=== PATIENT | male | born 1995 | race African-American/Black ===

== ENCOUNTER 2020-07-03 21:28 | Emergency (ER) | payer OTHER, SELFPAY ==
[2020-07-03 21:25] VITALS: BP 128/67; PULSE 88; RESP 16; TEMP 36.6; O2SAT 100; BMI 18.6
[2020-07-03 21:35] VITALS: BP 128/69; PULSE 96; O2SAT 98
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
[2020-07-03 21:45] VITALS: BP 102/61; PULSE 117; O2SAT 97
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
[2020-07-03 21:50] VITALS: BP 122/78; PULSE 86; O2SAT 98
--- NOTE | 2020-07-03 21:50 | PC.NURSE ---
Patient gone to radiology at this time
[2020-07-03 21:54] LABS: Microscopic, Urine URINE MICROSCOPIC (MICROSCOPIC)
[2020-07-03 21:56] LABS: Appearance,Urine CLEAR (Clear); Basophils % 0.5 % (0.1-2.0); Bilirubin,Urine Negative (Negative); Blood, Urine Negative (Negative); Color,Urine YELLOW (Yellow); Eosinophils # 0.6 K/mm3 (0.0-0.4); Glucose,Urine (UA) Negative (Negative); Hematocrit 42.6 % (42.0-52.0); Hemoglobin 13.8 g/dL (14.1-18.0); Ketones,Urine Negative (Negative); Leukocyte Esterase,Urine Negative (Negative); Lymphocytes # 2.7 K/mm3 (0.7-4.5); Mean Corpuscular HGB Conc 32.5 g/dL (31.8-35.4); Mean Corpuscular Volume 86.3 fl (80-94); Mean Platelet Volume 8.6 fl (7.4-10.4); Monocytes # 0.3 K/mm3 (0.1-1.0); Monocytes % 4.4 % (1.7-9.3); Neutrophils # 3.6 K/mm3 (1.8-7.8); Nitrate,Urine Negative (Negative); Platelet Count 177 K/mm3 (142-424); Protein,Urine Negative (Negative); Red Blood Count 4.93 M/mm3 (4.60-6.20); Red Cell Distribution Width 12.2 % (11.5-17.5); Specific Gravity, Urine 1.025 (1.005-1.030); White Blood Count 7.2 K/mm3 (4.8-10.8)
[2020-07-03 21:58] LABS: Chloride 101 mmol/L (98-107); Potassium 3.7 mmoL/L (3.5-5.1); Sodium 139 mmol/L (136-145)
[2020-07-03 22:01] LABS: Anion Gap 14.7 mEq/L (5-15); Blood Urea Nitrogen 20 mg/dl (9-20); Calcium 9.5 mg/dl (8.4-10.2); Carbon Dioxide 27 mmol/L (22.0-30.0); Creatinine Clearance Estimated 105 mL/min (50-200); Estimated Glomerular Filt Rate 103 ml/min (>60); GFR (African American) 124 ML/MIN (>60); Glucose 137 mg/dl (74-100)
[2020-07-03 22:08] LABS: Barbiturates Screen,Urine Negative ng/ml (<200); Benzodiazepines Screen,Urine Negative ng/ml (<200)
[2020-07-03 22:09] LABS: Amphetamine/Metha Screen,Urine Negative ng/ml (<1000)
[2020-07-03 22:10] LABS: Cannabinoid Screen,Urine Positive ng/ml (<50); Cocaine Screen,Urine Negative ng/ml (<300)
[2020-07-03 22:11] LABS: Methadone Screen,Urine Negative ng/ml (<300); Opiate Screen,Urine Negative ng/ml (<300)
[2020-07-03 22:12] LABS: Bacteria,Urine Trace /lpf; Phencyclidine Screen,Urine Negative ng/ml (<25)
--- NOTE | 2020-07-03 22:14 | PC.NURSE ---
pt back from radiology
--- NOTE | 2020-07-03 23:08 | PC.NURSE ---
pt is back from XR
[2020-07-03 23:10] VITALS: BP 108/71; PULSE 61; RESP 18; O2SAT 100
[2020-07-03 23:25] VITALS: BP 128/69; PULSE 79; RESP 16; TEMP 37.1
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
[2020-07-04 10:37] LABS: POC Glucose,Bedside 147 (70-110)
== END 2020-07-03 23:44 | disposition home or self-care (01) ==
PROVIDERS: Emergency Provider Emergency Medicine
DX: S16.1XXA Strain of muscle, fascia and tendon at neck level, initial encounter (principal); V89.2XXA Person injured in unspecified motor-vehicle accident, traffic, initial encounter; Y92.488 Other paved roadways as the place of occurrence of the external cause; F12.10 Cannabis abuse, uncomplicated; F17.290 Nicotine dependence, other tobacco product, uncomplicated
CPT/HCPCS: 70450; 71046; 72125; 72170; 80048; 80305; 81001; 82962; 85025; 99284

== ENCOUNTER 2022-03-05 12:07 | Emergency (ER) | payer MEDICAID, SELFPAY ==
[2022-03-05] VITALS (10 sets, daily range): BP systolic 104–134; BP diastolic 62–93; PULSE 44–78; RESP 16–17; TEMP 36.6–36.8; O2SAT 94–100; BMI 19.2
--- NOTE | 2022-03-05 12:17 | PC.NURSE ---
pt ambulatory to restroom to provide UA without complications and then ambulatory to ED room 9. SHABBIR English at
[2022-03-05 12:28] LABS: Microscopic, Urine URINE MICROSCOPIC (MICROSCOPIC)
[2022-03-05 12:30] LABS: Appearance,Urine CLEAR (Clear); Blood, Urine Negative (Negative); Color,Urine YELLOW (Yellow); Glucose,Urine (UA) Negative (Negative); Ketones,Urine TRACE (Negative); Leukocyte Esterase,Urine Negative (Negative); Nitrate,Urine Negative (Negative); PH,Urine 6.5 (5.0-8.5); Protein,Urine Negative (Negative)
[2022-03-05 12:40] LABS: Bilirubin,Urine 1+ (Negative)
--- NOTE | 2022-03-05 12:44 | HMH.EDGENADL ---
ED Disposition Clinical Impression: Colitis Disposition: Home, Self-Care Condition on Discharge: Good Instructions: DI for Acute Abdominal Pain Additional Instructions: Cipro and ibuprofen as prescribed. Follow-up with primary care provider if not improved in 4 to 5 days. Additional instructions for ABDOMINAL PAIN: See your physician as soon as possible for further evaluation. Return immediately if worsening abdominal pain, vomiting, shortness of breath, fever, vomiting of blood, bloody diarrhea, or abdominal distention. You are being provided with a list of physicians available for follow-up of your condition. Please call a physician on this list to arrange a follow-up appointment as soon as possible. Prescriptions: Ibuprofen [Ibuprofen 600mg Tab] 600 mg PO Q6HP PRN #20 tab PRN Reason: Moderate Pain Transmission Status: [facility] Ciprofloxacin HCl [Cipro 500mg Tab] 500 mg PO BID #14 tab Transmission Status: [facility] Referrals: Provider,Referral, [Primary Care Provider] - - Critical Care Critical Care Time: No Attestation: On 03/05/22, the high probability of a clinically significant, sudden or life threatening deterioration of the following system(s) required my full and direct attention, intervention and personal management. The time I documented below is in addition to time spent performing reported procedures but includes the following listed in this critical care notation. Medical Decision Making - Lefty Inquiry Pt receiving controlled substance: Yes Lefty was queried for this patient: Yes Risks and benefits of using a controlled substance: were not discussed with pt by me Vital Signs: 03/05/22 12:23 03/05/22 12:30 03/05/22 13:00 Temperature 98.2 F Temperature Source Oral Pulse Rate 56 L 65 Pulse Rate [Right] 54 L Respiratory Rate 17 Blood Pressure 134/93 H 116/80 Blood Pressure [Right Arm] 122/62 Blood Pressure Mean 104 97 Blood Pressure Mean [Right Arm] 82 02 Sat by Pulse Oximetry 100 100 100 03/05/22 13:30 03/05/22 14:00 03/05/22 14:30 Temperature Temperature Source Pulse Rate 44 L 47 L 53 L Pulse Rate [Right] Respiratory Rate Blood Pressure 126/81 110/63 119/84 Blood Pressure [Right Arm] Blood Pressure Mean 97 78 94 Blood Pressure Mean [Right Arm] 02 Sat by Pulse Oximetry 100 100 100 03/05/22 15:00 03/05/22 15:30 03/05/22 16:01 Temperature Temperature Source Pulse Rate 49 L 55 L 51 L Pulse Rate [Right] Respiratory Rate Blood Pressure 114/77 104/67 L 104/64 L Blood Pressure [Right Arm] Blood Pressure Mean 89 79 78 Blood Pressure Mean [Right Arm] 02 Sat by Pulse Oximetry 100 100 100 - Lab Data Lab Results 03/05/22 10:20: Urine Color Yellow, Urine Appearance Clear, Urine pH 6.5, Ur Specific [place] 1.020, Urine Protein Negative, Urine Glucose (UA) Negative, Urine Ketones Trace, Urine Blood Negative, Urine Nitrate Negative, Urine Bilirubin 1+ A, Urine Urobilinogen 4.0, Ur Leukocyte Esterase Negative, Urine RBC None, Urine WBC None, Ur Squamous Epith Cells 3-5, Urine Bacteria Trace 03/05/22 12:30: WBC 3.8 L, RBC 5.01, Hgb 14.2, Hct 42.6, MCV 84.9, MCH 28.4, MCHC 33.4, RDW 12.9, Plt Count 191, MPV 9.0, Neut % (Auto) 36.8 L, Lymph % (Auto) 48.4, [place] % (Auto) 5.8, Eos % (Auto) 5.7, Baso % (Auto) 3.2 H, Neut # (Auto) 1.4 L, Lymph # (Auto) 1.9, [place] # (Auto) 0.2, Eos # (Auto) 0.2, Baso # (Auto) 0.1 03/05/22 12:30: Sodium 140, Potassium 3.8, Chloride 104, Carbon Dioxide 30, Anion Gap 9.8, BUN 17, Creatinine 1.00, Estimated Creat Clear 93, Estimated GFR 90, Est GFR ( Amer) 108, Glucose 111 H, Calcium 9.4, Total Bilirubin 0.9, AST 31, ALT 16, Alkaline Phosphatase 48, Total Protein 7.6, Albumin 4.8, Globulin 2.8, Albumin/Globulin Ratio 1.7, Amylase 74, Lipase 78 03/05/22 12:52: SARS-CoV-2 (PCR) Not detected, Influenza A Untype (PCR) Not detected, Influenza Type B (PCR
[2022-03-05 12:48] LABS: Basophils # 0.1 K/mm3 (0-0.2); Basophils % 3.2 % (0.1-2.0); Eosinophils # 0.2 K/mm3 (0.0-0.4); Eosinophils % 5.7 % (0.1-12.0); Hematocrit 42.6 % (42.0-52.0); Hemoglobin 14.2 g/dL (14.1-18.0); Lymphocytes # 1.9 K/mm3 (0.7-4.5); Lymphocytes % 48.4 % (10-50); Mean Corpuscular HGB Conc 33.4 g/dL (31.8-35.4); Mean Corpuscular Hemoglobin 28.4 pg (27.0-31.2); Mean Corpuscular Volume 84.9 fl (80-94); Monocytes # 0.2 K/mm3 (0.1-1.0); Monocytes % 5.8 % (1.7-9.3); Neutrophils # 1.4 K/mm3 (1.8-7.8); Neutrophils % 36.8 % (37.0-80.0); Platelet Count 191 K/mm3 (142-424); Red Blood Count 5.01 M/mm3 (4.60-6.20); Red Cell Distribution Width 12.9 % (11.5-17.5); White Blood Count 3.8 K/mm3 (4.8-10.8)
--- NOTE | 2022-03-05 12:50 | CT_ITS ---
FINAL REPORT CLINICAL HISTORY: abdo pain, r/o appendicitis FINDINGS: Axial CT images of the abdomen and pelvis were obtained without intravenous contrast. Oral contrast was administered. Coronal reformatted images were also obtained.This study was performed with techniques to keep radiation doses as low as reasonably achievable (ALARA). Individualized dose reduction techniques using automated exposure control or adjustment of mA and/or kV according to the patient's size were employed. Abdomen: The lung bases are clear. There are early calcifications in the renal pyramids without well-defined renal stones. The gallbladder is present. The liver, spleen and pancreas have an unremarkable, unenhanced appearance. There is wall thickening of the ascending colon with some adjacent fat straight a consistent with colitis. There is a paucity of intra-abdominal and intrapelvic fat which makes evaluation more difficult. Pelvis: A portion of the appendix is visualized and appears normal where seen. Images of the pelvis reveal no evidence of ureteral dilation or ureteral stone. There is a small amount of pelvic free fluid which is likely reactive. There is a cystic mass in the mid pelvis measuring 31 mm which may represent mesenteric or omental cyst versus other cystic mass. IMPRESSION: Findings consistent with ascending colitis. Appendix partially visualized but normal where seen. Pelvic cystic mass of uncertain etiology. Could be further evaluated with follow-up CT. Small amount of pelvic free fluid, likely reactive. Reviewed, Interpreted and Dictated by Orion Nuñez III, MD Transcribed by Barb Wong Authenticated by Orion Nuñez III, MD on 03/05/2022 03:48:36 PM [facility]
[2022-03-05 12:54] LABS: Chloride 104 mmol/L (98-107); Potassium 3.8 mmoL/L (3.5-5.1); Sodium 140 mmol/L (136-145)
[2022-03-05 12:54] LABS: Bacteria,Urine Trace /lpf
[2022-03-05 12:56] LABS: Alanine Aminotransferase 16 U/L (12-78); Amylase 74 U/L (30-110); Aspartate Amino Transferase 31 U/L (17-59); Blood Urea Nitrogen 17 mg/dl (9-20); Creatinine Clearance Estimated 93 mL/min (50-200); Estimated Glomerular Filt Rate 90 ml/min (>60); GFR (African American) 108 ML/MIN (>60)
[2022-03-05 12:57] LABS: Albumin Level 4.8 g/dl (3.5-5.0); Albumin/Globulin Ratio 1.7 (1.1-1.8); Alkaline Phosphatase 48 U/L (38-126); Anion Gap 9.8 mEq/L (5-15); Bilirubin,Total 0.9 mg/dl (0.2-1.3); Calcium 9.4 mg/dl (8.4-10.2); Carbon Dioxide 30 mmol/L (22.0-30.0); Globulin 2.8 g/dL (1.3-3.2); Glucose 111 mg/dl (74-100); Lipase 78 U/L (23-300); Total Protein,Serum 7.6 g/dl (6.3-8.2)
--- NOTE | 2022-03-05 13:04 | PC.NURSE ---
Pt finished or contrast notified rad
--- NOTE | 2022-03-05 14:29 | PC.NURSE ---
Family at BS
[2022-03-05 15:07] LABS: Coronavirus 19, PCR Not Detected (NotDetected); Influenza A, PCR Not Detected (NotDetected); Influenza B, PCR Not Detected (NotDetected)
--- NOTE | 2022-03-05 16:23 | PC.NURSE ---
ED MD at speaking with patient
== END 2022-03-05 16:59 | disposition home or self-care (01) ==
PROVIDERS: Emergency Provider Emergency Medicine
DX: K52.9 Noninfective gastroenteritis and colitis, unspecified; Z72.0 Tobacco use
CPT/HCPCS: 74176; 80053; 81001; 82150; 83690; 85025; 96372; 96374; 96375; 99284; C9803; J2405; U0003; U0005

== ENCOUNTER 2022-08-22 11:48 | Emergency (ER) | payer OTHER, SELFPAY ==
[2022-08-22 12:20] VITALS: BP 116/67; PULSE 64; RESP 18; TEMP 36.8; O2SAT 99; BMI 20.3
[2022-08-22 12:43] LABS: UTC Influenza A Antigen Negative (Negative); UTC Influenza B Antigen Negative (Negative)
--- NOTE | 2022-08-22 12:46 | EXP.UTC ---
Discharge Plan Disposition Patient Disposition: Home, Self-Care Condition: Good Prescriptions Prescriptions: New ondansetron 4 mg tablet,disintegrating 4 mg PO Q8H PRN (Reason: nausea and vomiting) Qty: 10 0RF Referrals Follow up/Referrals: Provider,Referral, MD [Primary Care Provider] - See instructions Activity Restrictions/Add. Instructions Additional Instructions/Restrictions: *Monitor Temp, Over the counter Motrin or Tylenol as directed/as needed Tylenol every 4 hours and Motrin every 6 hours (as long as your family doctor has told you that you can take it) for fever or pain. and straight to ER if unable to lower temp less than 101.0 after medication given *Warm salt water gargles may help to soothe the throat *Throat Lozenges? *Warm fluids like tea with honey may help to soothe the throat? *Sleep elevated *Humidifier/Vaporizer Over the counter cold and cough medication Follow up IMMEDIATELY for new or worsening symptoms or no Noticeable improvement over the next 48-72 hours. 911 for difficulty breathing or swallowing You were tested for today for COVID19 your test result should be back in the next 24-48 hours, you may check your results on the [facility] linkedü Health portal Clinical Impressions Clinical Impression: Viral syndrome Stand Alone Forms Stand Alone Forms: Work/School Release Instructions Patient Instructions: DI for Viral Upper Respiratory Infection -- Adult Discharge ED Provider: Brandie Pham [facility] [place] General Stated complaint: JEAN, Lightheaded, nausea, chills Mode of Arrival: Ambulatory Source of Information: Patient Limitations: No Limitations Time Seen by Provider: 08/22/22 12:47 Description of Symptoms (Recalled from Triage Doc. by RN): PATIENT C/O HEADACHE, NAUSEA, AND BODY ACHES SINCE YESTERDAY HEENT Symptoms (Recalled from RN notes): Yes Resp Symptoms (Recalled from RN notes): No Skin Symptoms (Recalled from RN notes): No MS Symptoms (Recalled from RN notes): No Functional Status (Recalled from RN notes): WNL History of Present Illness Provider Complaint: Patient states that he started feeling bad yesterday with fever, chills, body aches and nausea states that symptoms started last night and today he was still feeling bad so he came in to get checked out Related Data Previous Rx's Medication Instructions Recorded ondansetron 4 mg disintegrating 4 mg PO Q8H PRN nausea and 08/22/22 tablet vomiting #10 tabs Allergies Allergy/AdvReac Type Severity Reaction Status Date / Time No Known Allergies Allergy Verified 07/03/20 21:41 Worker's Comp Is this a Worker's Comp case?: No PFSH PFSH Medical History (Updated 08/22/22 @ 13:01 by Brandie Pham APRN) Asthma Social History (Updated 08/22/22 @ 12:29 by Joanne Salazar RN) Smoking Status: Current every day smoker tobacco type: e-cigarettes alcohol intake: never current occupational status: employed Travel in the last 8 weeks: None ROS Obtained: Yes All systems reviewed & no additional complaints except as documented and Yes Systems reviewed as appropriate & no additional complaints except as documented Constitutional Constitutional: Reports system reviewed and no additional complaints, except as documented and Reports as per HPI ENT Ears, Nose, Mouth, and Throat: Reports system reviewed and no additional complaints, except as documented, Reports as per HPI, Reports nasal congestion and Reports nasal discharge Cardiovascular Cardiovascular: Reports system reviewed and no additional complaints, except as documented and Reports as per HPI Respiratory Respiratory: Reports system reviewed and no additional complaints, except as documented, Reports as per HPI and Reports cough Gastrointestinal Gastrointestingal: Reports system reviewed and no additional complaints, except as documented and as per HPI Physical Exam General General appearance: alert and in no apparent distress Expanded ENT
[2022-08-22 13:15] VITALS: BP 116/67; PULSE 64; RESP 18; TEMP 36.8; O2SAT 99
== END 2022-08-22 13:17 | disposition home or self-care (01) ==
PROVIDERS: Emergency Provider Nurse Practitioner
DX: R51.9 Headache, unspecified (principal); R42 Dizziness and giddiness; R11.0 Nausea; B34.9 Viral infection, unspecified
CPT/HCPCS: 87804; 99212; G0463

== ENCOUNTER 2023-10-14 15:33 | Emergency (ER) | payer OTHER, MEDICAID, SELFPAY ==
[2023-10-14 16:00] VITALS: BP 121/57; PULSE 83; RESP 18; TEMP 37.1; O2SAT 100; BMI 19.2
--- NOTE | 2023-10-14 16:11 | EXP.UTC ---
Discharge Plan Disposition Patient Disposition: Home, Self-Care Condition: Good Prescriptions Prescriptions: New amoxicillin [amoxicillin] 875 mg tablet 875 mg PO Q12H Qty: 20 0RF [id number] [Bromfed DM] 2-30-10 mg/5 mL Syrup 5 ml PO Q6H PRN (Reason: Cough) Qty: 240 0RF prednisone 10 mg tablet 10 mg PO BID 3 Days Qty: 6 0RF Referrals Follow up/Referrals: Provider,Referral, MD [Primary Care Provider] - See instructions Activity Restrictions/Add. Instructions Additional Instructions/Restrictions: Drink plenty of fluids. Take tylenol or ibuprofen for pain or fever. Take the medications as directed. Follow up with your regular doctor. GO TO THE ER FOR ANY WORSENING SYMPTOMS Throw your tooth brush away and get a new one. Clinical Impressions Clinical Impression: Strep throat Stand Alone Forms Stand Alone Forms: Work/School Release Instructions Patient Instructions: Strep Throat, DI for Strep Throat Discharge ED Provider: Chai Rojas [facility] General Stated complaint: sore throat, nausea, fever Time Seen by Provider: 10/14/23 16:05 History of Present Illness Provider Complaint: He states that for the past 2 days he has had sore throat, chills, and fever. Related Data Previous Rx's Medication Instructions Recorded amoxicillin 875 mg tablet 875 mg PO Q12H #20 tabs 10/14/23 [id number]-nzzzhetnmmkewpl-[id number] 5 ml PO Q6H PRN Cough #240 mL 10/14/23 2 mg-30 mg-10 mg/5 mL oral syrup (Bromfed DM) prednisone 10 mg tablet 10 mg PO BID 3 days #6 tabs 10/14/23 Allergies Allergy/AdvReac Type Severity Reaction Status Date / Time No Known Allergies Allergy Verified 10/14/23 16:23 [facility] Disclaimer: The information contained in this section may have been updated after the patient was seen, as this information can be updated by other users. Medical History (Updated 10/14/23 @ 16:33 by Chai Rojas APRN) Asthma Social History Smoking Status: Current every day smoker tobacco type: e-cigarettes alcohol intake: never current occupational status: employed Travel in the last 8 weeks: None ROS Obtained: Yes All systems reviewed & no additional complaints except as documented Constitutional Constitutional: Reports chills and Reports fever(s) Eyes Eyes: Denies eye discharge ENT Ears, Nose, Mouth, and Throat: Reports as per HPI Cardiovascular Cardiovascular: Denies chest pain Respiratory Respiratory: Denies chest congestion and Reports cough Gastrointestinal Gastrointestingal: Reports nausea; Denies abdominal pain, constipation, cramping, diarrhea or vomiting Musculoskeletal Musculoskeletal: Denies arthralgias Integumentary/Breasts Skin/Breast: Denies rash Neurologic Neurologic: Denies paresthesias Physical Exam General General appearance: alert and in no apparent distress Head Head exam: atraumatic, normocephalic and normal inspection Eye Eye exam: Present normal appearance, PERRL and EOMI ENT ENT exam: Present mucous membranes moist and normal external ear exam Expanded ENT Exam TM/Canal exam: Bilateral TM: erythema and bulging Nose exam: Absent sinus tenderness Mouth exam: Present normal external inspection; Absent drooling Teeth exam: Present normal inspection Throat exam: Present tonsillar erythema, tonsillomegaly and tonsillar exudate Neck Neck exam: Present normal inspection, full ROM and trachea midline; Absent tenderness, meningismus or lymphadenopathy Chest Chest inspection: Present normal inspection and symmetric chest wall rise; Absent tenderness Respiratory Respiratory exam: Present normal lung sounds bilaterally; Absent respiratory distress, wheezes or stridor Cardiovascular Cardiovascular exam: Present regular rate and normal rhythm; Absent systolic murmur or diastolic murmur Abdominal Exam Abdominal exam: Present soft and normal bowel sounds; Absent distention, tenderness, guarding, rebound or rigidity Extremities Exam Extremities exam: Present normal inspection and normal capillary refill; Absent calf tenderness Back Exam Back exam: Present normal inspection and full ROM; Absent tenderness, CVA tenderness (R) or CVA tenderness (L) Neurological Exam Neurological exam: Present alert, oriented X3 and CN II-XII intact Psychiatric Psychiatric exam: Present normal affect and normal mood Skin Skin exam: Present warm, dry, intact and normal color Medical Decision Making Medical Records Medical records reviewed: No I reviewed the patient's medical records. Lefty Inquiry Pt receiving controlled substance: No Lab Data Lab results reviewed: Yes I reviewed the patient's lab results.
[2023-10-14 16:24] LABS: UTC Influenza A Antigen Negative (Negative); UTC Influenza B Antigen Negative (Negative)
[2023-10-14 16:25] LABS: UTC Strep Screen (Rapid) Positive (Negative)
[2023-10-14 16:48] VITALS: BP 121/57; PULSE 83; RESP 18; TEMP 37.1; O2SAT 100
== END 2023-10-14 16:48 | disposition home or self-care (01) ==
PROVIDERS: Emergency Provider Nurse Practitioner Family
DX: J02.0 Streptococcal pharyngitis (principal); R07.0 Pain in throat; R50.9 Fever, unspecified; R11.0 Nausea; F17.290 Nicotine dependence, other tobacco product, uncomplicated; J45.909 Unspecified asthma, uncomplicated
CPT/HCPCS: 87804; 87880; 99212; 99214; G0463

== ENCOUNTER 2024-03-28 11:10 | Emergency (ER) | payer BC, SELFPAY ==
[2024-03-28 11:17] VITALS: BP 122/70; PULSE 54; O2SAT 100
[2024-03-28 11:20] VITALS: BP 122/70; PULSE 60; RESP 20; TEMP 36.6; O2SAT 100; BMI 18.6
[2024-03-28 11:24] LABS: Microscopic, Urine URINE MICROSCOPIC (MICROSCOPIC)
[2024-03-28 11:27] LABS: Appearance,Urine CLEAR (Clear); Blood, Urine Negative (Negative); Glucose,Urine (UA) Negative (Negative); Ketones,Urine TRACE (Negative); Leukocyte Esterase,Urine Negative (Negative); Nitrate,Urine Negative (Negative); Protein,Urine TRACE (Negative); Specific Gravity, Urine 1.025 (1.005-1.030)
--- NOTE | 2024-03-28 11:30 | ED_ITS ---
Discharge Plan Disposition Patient Disposition: Home, Self-Care Chief Complaint: Nausea/Vomiting/Diarrhea Prescriptions Prescriptions: No Action amoxicillin [amoxicillin] 875 mg tablet 875 mg PO Q12H Qty: 20 0RF [id number]-[id number] [Bromfed DM] 2-30-10 mg/5 mL Syrup 5 ml PO Q6H PRN (Reason: Cough) Qty: 240 0RF prednisone 10 mg tablet 10 mg PO BID 3 Days Qty: 6 0RF Referrals Follow up/Referrals: Provider,Referral, MD [Primary Care Provider] - See instructions Activity Restrictions/Add. Instructions Additional Instructions/Restrictions: At this time it was felt you are safe to be discharged home. If new or worsening symptoms please do not hesitate to return the emergency department. Clinical Impressions Clinical Impression: Acute viral syndrome, Impacted cerumen, left ear Instructions Patient Instructions: DI for Nausea -- Adult Discharge ED Provider: César Matamoros General Adult HPI General Chief complaint: Nausea/Vomiting/Diarrhea Stated complaint: headache,chills.abd pain Time Seen by Provider: 03/28/24 11:20 History of Present Illness HPI narrative: Patient is a 29-year-old male with no chronic comorbidities who presents emergency department for evaluation of multiple symptoms. Patient has had nausea over the last week, intermittent bitemporal headache. He has had abdominal discomfort in his left upper quadrant. There is associated global chills. He is concerned about possible left-sided ear infection. No dysuria, no chest pain, no other acute complaints at this time. No definitive sick contacts currently however multiple family members had virus prior. Related Data Previous Rx's Medication Instructions Recorded amoxicillin 875 mg tablet 875 mg PO Q12H #20 tabs 10/14/23 shtllgdxvpmpqts-cggqxlvuzwiffgi-IS 5 ml PO Q6H PRN Cough #240 mL 10/14/23 2 mg-30 mg-10 mg/5 mL oral syrup (Bromfed DM) prednisone 10 mg tablet 10 mg PO BID 3 days #6 tabs 10/14/23 Allergies Allergy/AdvReac Type Severity Reaction Status Date / Time No Known Allergies Allergy Verified 10/14/23 16:23 [facility] Disclaimer: The information contained in this section may have been updated after the patient was seen, as this information can be updated by other users. Medical History (Updated 03/28/24 @ 12:20 by César Matamoros MD) Asthma Social History Smoking Status: Current every day smoker tobacco type: e-cigarettes alcohol intake: never current occupational status: employed Travel in the last 8 weeks: None ROS Obtained: Yes Systems reviewed as appropriate & no additional complaints except as documented Physical Exam General General appearance: alert and in no apparent distress Head Head exam: atraumatic and normocephalic Eye Eye exam: Present PERRL and EOMI ENT ENT exam: Present mucous membranes moist; Absent TM's normal bilaterally (Right TM normal, left TM impacted with cerumen) Neck Neck exam: Present normal inspection Chest Chest inspection: Present normal inspection and symmetric chest wall rise Respiratory Respiratory exam: Present normal lung sounds bilaterally; Absent respiratory distress Cardiovascular Cardiovascular exam: Present regular rate and normal rhythm Abdominal Exam Abdominal exam: Present soft; Absent tenderness, guarding or rebound Extremities Exam Extremities exam: Present normal inspection Neurological Exam Neurological exam: Present alert, CN II-XII intact and normal gait; Absent motor sensory deficit Psychiatric Psychiatric exam: Present normal affect Skin Skin exam: Present warm and dry Medical Decision Making Lefty Inquiry Pt receiving controlled substance: No Vital Signs: 03/28/24 11:20 Temperature 97.8 F Temperature Source Oral Pulse Rate [Left Radial] 60 Respiratory Rate 20 Blood Pressure [Right Arm] 122/70 Blood Pressure Mean [Right Arm] 87 02 Sat by Pulse Oximetry 100 Oxygen Delivery Method Room Air Lab Data Lab Results 03/28/24 11:18: Urine Color [place], Urine Appearance Clear, Urine pH 7.0, Ur Specific [place] 1.025, Urine Protein Trace, Urine Glucose (UA) Negative, Urine Ketones Trace, Urine Blood Negative, Urine Nitrate Negative, Urine Bilirubin 1+ A, Urine Urobilinogen 4.0, Ur Leukocyte Esterase Negative, Urine WBC Occasional 03/28/24 11:40: WBC 3.0 L, RBC 4.93, Hgb 13.8 L, Hct 43.2, MCV 87.7, MCH 28.1, MCHC 32.0, RDW 13.2, Plt Count 168, MPV 8.9, Neut % (Auto) 38.3, Lymph % (Auto) 48.1, [place] % (Auto) 6.2, Eos % (Auto) 3.7, Baso % (Auto) 3.6 H, Neut # (Auto) 1.1 L, Lymph # (Auto) 1.4, Evangeline # (Auto) 0.2, Eos # (Auto) 0.1, Baso # (Auto) 0.1, Sodium 138, Potassium 3.5, Chloride 106, Carbon Dioxide 28, Anion Gap 7.5, BUN 19, Creatinine 0.90, Estimated Creat Clear 101, Estimated GFR 100, Est GFR ( Amer) 121, Glucose 114 H, Calcium 8.7, Total Bilirubin 0.8, AST 27, ALT 16, Alkaline Phosphatase 40, Total Protein 6.8, Albumin 4.2, Globulin 2.6, Albumin/Globulin Ratio 1.6, Lipase 123 03/28/24 11:40 03/28/24 11:40 Orders (Tests/Meds): ED MEDICATIONS Generic Name Dose Route Start Last Admin Trade Name Freq PRN Reason Stop Dose Admin Lactated Ringer's 1,000 mls @ 999 mls/hr 03/28/24 11:29 03/28/24 11:54 Lactated Ringer's 1000 Ml Bag IV 03/28/24 12:29 999 mls/hr .Q1H1M ONE Administration Discontinued Medications Generic Name Dose Route Start Last Admin Trade Name Freq PRN Reason Stop Dose Admin Acetaminophen 1,000 mg 03/28/24 11:21 03/28/24 11:59 Acetaminophen 500mg Tab PO 03/28/24 11:22 1,000 mg ONCE ONE Administration Belladonna Alkaloids 60 ml 03/28/24 11:22 03/28/24 12:02 Belladonna Alkaloids 60 Ml Ml PO 03/28/24 11:23 60 ml ONCE ONE Administration Diphenhydramine HCl 25 mg 03/28/24 11:28 03/28/24 11:58 Diphenhydramine 50mg/Ml Vial IV 03/28/24 11:29 25 mg ONCE ONE Administration Ketorolac Tromethamine 30 mg 03/28/24 11:21 03/28/24 11:50 Ketorolac 30mg/Ml Vial IV 03/28/24 11:22 Not Given ONCE ONE Ondansetron HCl 4 mg 03/28/24 11:21 03/28/24 11:56 Ondansetron 4mg/2ml Vial IV 03/28/24 11:22 4 mg ONCE ONE Administration Prochlorperazine Edisylate 5 mg 03/28/24 11:28 03/28/24 11:57 Prochlorperazine 10mg/2ml Vial IV 03/28/24 11:29 5 mg ONCE ONE Administration ORDERS Category Date Time Status CBC w/Auto Diff [Complete Blood Count Auto Diff] Stat Lab 03/28/24 11:40 Completed CMP [Comprehensive Metabolic Panel] Stat Lab 03/28/24 11:40 Completed Lipase Stat Lab 03/28/24 11:40 Completed UA [Urinalysis and Microscopic] Stat Lab 03/28/24 11:18 Completed Medical Decision Narrative: In summary patient is a 29-year-old male with past medical history described above who presents to the emergency department for evaluation of multiple complaints including headache, nausea, global chills. Patient is hemodynamically stable nontoxic-appearing upon arrival, afebrile. History and physical consistent with viral syndrome. Basic hematologic labs will be obtained to ensure that patient's body is keeping up with viral process given the acute on subacute nature of this. With the specter headache he has a nonfocal neurologic exam and is likely either a viral mediated headache or sinus headache, regardless advanced imaging was considered but will be deferred at this time. Initial inventions include headache cocktail, crystalloid bolus. Initial workup reviewed by me, hematologic labs are nonactionable, urinalysis interpreted by me and not consistent with infection. Upon repeat evaluation patient continued to be well-appearing and is appropriate for outpatient management at this time. Procedure: Procedure performed cerumen disimpaction. Procedure performed by César Matamoros. Using curette significant amount of cerumen was removed from the external auditory canal, cerumen plug was removed with alligator forceps with success. Patient tolerated the procedure well. He had improvement of symptoms of the left ear. There were no immediate complications. Critical Care Critical Care Time Critical Care Time: No
[2024-03-28 11:53] LABS: Bilirubin,Urine 1+ (Negative); Color,Urine Orange (Yellow)
[2024-03-28 11:53] LABS: Basophils # 0.1 K/mm3 (0-0.2); Basophils % 3.6 % (0.1-2.0); Eosinophils # 0.1 K/mm3 (0.0-0.4); Eosinophils % 3.7 % (0.1-12.0); Hematocrit 43.2 % (42.0-52.0); Hemoglobin 13.8 g/dL (14.1-18.0); Lymphocytes # 1.4 K/mm3 (0.7-4.5); Lymphocytes % 48.1 % (10-50); Mean Corpuscular Hemoglobin 28.1 pg (27.0-31.2); Mean Corpuscular Volume 87.7 fl (80-94); Mean Platelet Volume 8.9 fl (7.4-10.4); Monocytes # 0.2 K/mm3 (0.1-1.0); Monocytes % 6.2 % (1.7-9.3); Neutrophils # 1.1 K/mm3 (1.8-7.8); Neutrophils % 38.3 % (37.0-80.0); Platelet Count 168 K/mm3 (142-424); Red Blood Count 4.93 M/mm3 (4.60-6.20); Red Cell Distribution Width 13.2 % (11.5-17.5)
[2024-03-28 11:54] LABS: WBC,Urine Occasional #/hpf (0-3)
[2024-03-28] MEDS: LACTATED RINGERS 1000ML 1,000 ML 999 ML IV (11:54)
[2024-03-28] MEDS: ONDANSETRON 4MG/2ML VIAL 4 MG IV (11:56)
[2024-03-28] MEDS: PROCHLORPERAZINE 10MG/2ML VIAL 5 MG IV (11:57)
[2024-03-28] MEDS: diphenhydrAMINE 50MG/ML VIAL 25 MG IV (11:58)
[2024-03-28] MEDS: ACETAMINOPHEN 500MG TAB 1000 MG PO (11:59)
[2024-03-28] MEDS: BELLADONNA ALKALOIDS 60 ML ML PO (12:02)
[2024-03-28 12:12] LABS: Chloride 106 mmol/L (98-107); Sodium 138 mmol/L (136-145)
[2024-03-28 12:13] LABS: Potassium 3.5 mmoL/L (3.5-5.1)
[2024-03-28 12:15] LABS: Alanine Aminotransferase 16 U/L (12-78); Alkaline Phosphatase 40 U/L (38-126); Anion Gap 7.5 mEq/L (5-15); Aspartate Amino Transferase 27 U/L (17-59); Bilirubin,Total 0.8 mg/dl (0.2-1.3); Blood Urea Nitrogen 19 mg/dl (9-20); Carbon Dioxide 28 mmol/L (22.0-30.0); Creatinine Clearance Estimated 101 mL/min (50-200); Estimated Glomerular Filt Rate 100 ml/min (>60); GFR (African American) 121 ML/MIN (>60); Lipase 123 U/L (23-300)
[2024-03-28 12:16] LABS: Albumin Level 4.2 g/dl (3.5-5.0); Albumin/Globulin Ratio 1.6 (1.1-1.8); Calcium 8.7 mg/dl (8.4-10.2); Globulin 2.6 g/dL (1.3-3.2); Glucose 114 mg/dl (74-100); Total Protein,Serum 6.8 g/dl (6.3-8.2)
[2024-03-28 12:30] VITALS: BP 122/70; PULSE 54; RESP 16; TEMP 36.7
== END 2024-03-28 12:30 | disposition home or self-care (01) ==
PROVIDERS: Emergency Provider Emergency Medicine
DX: R10.812 Left upper quadrant abdominal tenderness (principal); R51.9 Headache, unspecified; H92.02 Otalgia, left ear; H61.22 Impacted cerumen, left ear; R11.0 Nausea; F17.210 Nicotine dependence, cigarettes, uncomplicated
CPT/HCPCS: 80053; 81001; 83690; 85025; 96361; 96374; 96375; 99284; J2405; J7120

== ENCOUNTER 2024-06-10 14:56 | Outpatient (CLI) | payer BC, SELFPAY ==
[2024-06-10 19:11] LABS: Basophils % 0.7 % (0.1-2.0); Eosinophils # 0.4 K/mm3 (0.0-0.4); Eosinophils % 7.9 % (0.1-12.0); Hemoglobin 13.6 g/dL (14.1-18.0); Hemoglobin A1C 5.6 % (4.0-6.0); Lymphocytes # 1.6 K/mm3 (0.7-4.5); Lymphocytes % 31.7 % (10-50); Mean Corpuscular HGB Conc 30.9 g/dL (31.8-35.4); Mean Corpuscular Hemoglobin 27.6 pg (27.0-31.2); Mean Corpuscular Volume 89.3 fl (80-94); Mean Platelet Volume 9.4 fl (7.4-10.4); Monocytes # 0.4 K/mm3 (0.1-1.0); Monocytes % 6.8 % (1.7-9.3); Neutrophils # 2.7 K/mm3 (1.8-7.8); Platelet Count 204 K/mm3 (142-424); Red Blood Count 4.93 M/mm3 (4.60-6.20); Red Cell Distribution Width 13.3 % (11.5-17.5); White Blood Count 5.1 K/mm3 (4.8-10.8)
[2024-06-10 19:41] LABS: Erythrocyte Sedimentation Rate 1 mm/hr (0-15)
[2024-06-10 19:56] LABS: Alanine Aminotransferase 18 U/L (12-78); Albumin Level 4.3 g/dl (3.5-5.0); Albumin/Globulin Ratio 1.4 (1.1-1.8); Alkaline Phosphatase 41 U/L (38-126); Anion Gap 6.3 mEq/L (5-15); Aspartate Amino Transferase 27 U/L (17-59); Bilirubin,Total 0.6 mg/dl (0.2-1.3); Blood Urea Nitrogen 15 mg/dl (9-20); Calcium 9.2 mg/dl (8.4-10.2); Carbon Dioxide 32 mmol/L (22.0-30.0); Chloride 106 mmol/L (98-107); Chol/HDL Ratio 3.1 (1-3.5); Cholesterol 183 mg/dl (140-200); Estimated Glomerular Filt Rate 100 ml/min (>60); GFR (African American) 121 ML/MIN (>60); Globulin 3.1 g/dL (1.3-3.2); Glucose 83 mg/dl (74-100); HDL Cholesterol 60 mg/dl (40-60); Potassium 4.3 mmoL/L (3.5-5.1); Sodium 140 mmol/L (136-145); Total Protein,Serum 7.4 g/dl (6.3-8.2); Triglycerides 84 mg/dl (30-150); VLDL Cholesterol 17 mg/dL (0-40)
[2024-06-10 20:12] LABS: C-Reactive Protein 3.2 mg/L (0-4); Direct LDL Cholesterol 76.61 mg/dL (100-129)
[2024-06-10 20:20] LABS: 25-OH Vitamin D, Total 19.2 ng/mL (30-100)
== END 2024-06-10 23:59 | disposition home or self-care (01) ==
LOC: LAB.DROPOF 06-11 14:56
PROVIDERS: PCP Family Medicine; Visit Provider Family Medicine
DX: G43.909 Migraine, unspecified, not intractable, without status migrainosus (principal); R53.83 Other fatigue
CPT/HCPCS: 80050; 80053; 80061; 82306; 83036; 84443; 85025; 85651; 86140

== ENCOUNTER 2024-06-28 13:00 | Outpatient (CLI) | payer BC, SELFPAY ==
--- NOTE | 2024-06-28 13:06 | MR_ITS ---
FINAL REPORT TECHNIQUE: Multiplanar MR, without and with gadolinium enhancement CLINICAL HISTORY: worsening migraines FINDINGS: Diffusion sequences show no signal abnormality to indicate acute infarct. No mass, hemorrhage or edema is seen. Ventricles are normal. Major vascular flow voids are intact. Following contrast administration, no mass or abnormal enhancement is seen. IMPRESSION: Unremarkable MR evaluation the brain with contrast Reviewed, Interpreted and Dictated by Toni Stewart MD Transcribed by Love Steve Authenticated and [facility]
[2024-06-28] MEDS: SODIUM CHLORIDE 0.9% 10ML SYR (RAD ONLY) 10 ML IV (13:50)
[2024-06-28] MEDS: GADOTERIDOL INJ 20ML SYRINGE 12 ML IV (13:50)
== END 2024-06-28 23:59 | disposition home or self-care (01) ==
LOC: RAD 13:01
PROVIDERS: Visit Provider Family Medicine
DX: G43.909 Migraine, unspecified, not intractable, without status migrainosus (principal)
CPT/HCPCS: 70553; A9576

== ENCOUNTER 2025-03-05 08:43 | Emergency (ER) | payer BC, SELFPAY ==
[2025-03-05 08:58] VITALS: BP 123/79; PULSE 80; RESP 20; TEMP 36.8; O2SAT 99; BMI 19.2
[2025-03-05] MEDS: LIDOCAINE 2% VISCOUS SOL 15ML UDC 15 ML PO (09:15)
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
[2025-03-05 09:23] VITALS: BP 132/79; PULSE 70; RESP 16; TEMP 36.8; O2SAT 98
== END 2025-03-05 09:23 | disposition home or self-care (01) ==
PROVIDERS: Emergency Provider Emergency Medicine; PCP Family Medicine
DX: R68.84 Jaw pain (principal); F17.290 Nicotine dependence, other tobacco product, uncomplicated
CPT/HCPCS: 99283

== ENCOUNTER 2025-09-22 15:16 | Outpatient (CLI) | payer BC, SELFPAY ==
[2025-09-22 20:42] LABS: Coronavirus 19, PCR Not Detected (NotDetected); Influenza B, PCR Not Detected (NotDetected)
[2025-09-23 02:24] LABS: Influenza A, PCR Detected (NotDetected)
== END 2025-09-22 23:59 | disposition home or self-care (01) ==
LOC: LAB.DROPOF 09-23 10:14
PROVIDERS: PCP Family Medicine; Visit Provider Student in an Organized Health Care Education/Training Program
DX: J06.9 Acute upper respiratory infection, unspecified (principal)
CPT/HCPCS: 87631